=== PATIENT | female | born 1975 | race Caucasian/White ===

== ENCOUNTER 2022-11-18 13:37 | Outpatient (CLI) | payer BC, SELFPAY | END 2022-11-18 13:38 | disposition home or self-care (01) | PROVIDERS: PCP Family Medicine; Visit Provider Family Medicine | DX: Z00.00 Encounter for general adult medical examination without abnormal findings (principal); R68.89 Other general symptoms and signs; Z13.6 Encounter for screening for cardiovascular disorders; Z11.59 Encounter for screening for other viral diseases | CPT/HCPCS: 80053; 80061; 84443; 86803 ==

== ENCOUNTER 2022-12-22 13:38 | Outpatient (CLI) | payer BC, SELFPAY | END 2022-12-22 13:39 | disposition home or self-care (01) | LOC: RAD 13:39 | PROVIDERS: PCP Family Medicine; Visit Provider Family Medicine | DX: I35.1 Nonrheumatic aortic (valve) insufficiency (principal) | CPT/HCPCS: 93306 ==

== ENCOUNTER 2023-01-07 13:45 | Outpatient (RCR) | payer BC, SELFPAY | END 2023-01-07 14:32 | disposition home or self-care (01) | PROVIDERS: PCP Family Medicine; Visit Provider Family Medicine | DX: M41.9 Scoliosis, unspecified (principal); R53.1 Weakness; Z51.89 Encounter for other specified aftercare | CPT/HCPCS: 97110; 97161 ==

== ENCOUNTER 2023-02-19 10:03 | Outpatient (CLI) | payer BC, SELFPAY ==
--- NOTE | 2023-02-19 10:15 | CRLHL7_ITS ---
For Patients: As a result of the Century Cures Act, medical imaging exams and procedure reports are released immediately into your electronic medical record. You may view this report before your referring provider. If you have questions, please contact your health care provider. BILATERAL SCREENING MAMMOGRAM WITH COMPUTER-AIDED DETECTION TECHNIQUE: CC and MLO views were obtained. These mammographic images have been obtained using full-field digital technique. These mammographic images were interpreted with the benefit of computer-aided detection. COMPARISON FILM: Baseline. FINDINGS: The breasts are heterogeneously dense, which may obscure small masses IMPRESSION: There is no radiographic evidence for malignancy. ASSESSMENT: BI-RADS Category 1: Negative RECOMMENDATION: Routine screening mammogram in 1 year. A lay language report of this examination will be provided to the patient. Trey Anne M.D. Diagnostic Radiologist [email or web address] ABIOLA/Dictated by: Trey Anne MD @ 02/19/2023 10:53:00 AM (Electronically Signed)
== END 2023-02-19 10:04 | disposition home or self-care (01) ==
LOC: MAMMO 10:03
PROVIDERS: PCP Family Medicine; Visit Provider Family Medicine
DX: Z12.31 Encounter for screening mammogram for malignant neoplasm of breast (principal); R92.2 Inconclusive mammogram
CPT/HCPCS: 77067

== ENCOUNTER 2023-08-17 16:20 | Outpatient (CLI) | payer BC, SELFPAY | END 2023-08-17 16:21 | disposition home or self-care (01) | PROVIDERS: PCP Family Medicine; Visit Provider Family Medicine | DX: L98.9 Disorder of the skin and subcutaneous tissue, unspecified (principal); M13.80 Other specified arthritis, unspecified site; F33.1 Major depressive disorder, recurrent, moderate | CPT/HCPCS: 86039; 86140; 86618 ==

== ENCOUNTER 2024-05-06 15:38 | Outpatient (CLI) | payer BC, SELFPAY ==
[2024-05-09 11:31] LABS: HPV Source Endocervical; HPV, High Risk by TMA Not Detected
== END 2024-05-06 15:39 | disposition home or self-care (01) ==
PROVIDERS: PCP Family Medicine; Visit Provider Family Medicine
DX: E16.2 Hypoglycemia, unspecified (principal); N92.0 Excessive and frequent menstruation with regular cycle; Z12.4 Encounter for screening for malignant neoplasm of cervix; Z11.51 Encounter for screening for human papillomavirus (HPV); Z13.220 Encounter for screening for lipoid disorders; Z13.21 Encounter for screening for nutritional disorder
CPT/HCPCS: 80053; 80061; 82306; 84439; 84443; 87624; 87625; 88141; 88142